=== PATIENT | male | born 1950 | race Caucasian/White ===

== ENCOUNTER 2017-02-16 09:48 | Day surgery (SDC) | payer OTHER ==
--- NOTE | 2017-02-16 10:03 | EDPHY ---
H & P Time Seen by Provider: 02/16/17 10:00 HPI/ROS: CHIEF COMPLAINT: Left wrist pain after falling off ladder HISTORY OF PRESENT ILLNESS: 66-year-old male year old arrives via private vehicle complaining left wrist pain and right pretibial abrasion after he was standing on a ladder height of approximately 5 feet, ladder slipped and he fell onto his outstretched left hand and also sustained abrasion to his right pretibial region. No head injury. He is able to bear weight. No neck pain or injury. No alcohol or drug use. No peripheral paresthesia, weakness, numbness. No syncope. Purely mechanical. PCP: [employer] REVIEW OF SYSTEMS: A ten point review of systems was performed and is negative with the exception of the items mentioned in the HPI PAST MEDICAL/SURGICAL HISTORY: Tetanus up-to-date no anticoagulant use, no relevant medical/surgical history SOCIAL HISTORY: denies alcohol use at time of incident PHYSICAL EXAM 1) GENERAL: Well-developed, well-nourished, alert and oriented. Appears to be in no acute distress. Answering questions appropriately. 2) HEAD: Normocephalic, atraumatic 3) HEENT: Pupils equal, round, reactive to light bilaterally. Negative Horners. Nasopharynx, oropharynx, clear. No deformity or angulation of nose. No septal hematoma. No rhinorrhea. No oral trauma. Ears bilaterally with normal tympanic membranes. No hemotympanum. No fluid or blood in the external auditory canal. No raccoon eyes. No Drake sign. . 4) NECK: No cervical collar is on. Posterior cervical spine is nontender, no stepoff, no effusion. Full range of motion which does not elicit any midline cervical spine pain, no posterior midline tenderness, no step-off. 5) LUNGS: Clear to auscultation bilaterally, no wheezes, no rhonchi, no retractions. No obvious signs of trauma. No chest wall pain. No flaring, no grunting. Moving symmetrically. No crepitus. 6) HEART: Regular rate and rhythm, 7) ABDOMEN: No guarding, no rebound, no focal tenderness, no peritoneal signs, no signs of trauma, no ecchymosis 8) MUSCULOSKELETAL: Left upper extremity: Tender to palpation wrist with noted dorsal deformity with intact skin, no puncture wound or laceration. Soft compartments of the upper extremity Proximally distally including forearm, elbow shoulder nontender. Radial ulnar median nerve function intact distally. Right lower extremity: Right pretibial abrasion with no underlying osseous discomfort, full weight-bearing. Soft compartments. Distal DP PT pulses present and brisk 9) BACK: No midline vertebral tenderness, no fluctuance, no step-off, no obvious trauma, no visual or palpable abnormality. 10) SKIN: abrasion to right pretibial region with no underlying osseous discomfort, soft compartments DIFFERENTIAL DIAGNOSIS:in no particular order including but not limited to fracture, sprain, strain, compartment syndrome. Smoking Status: Former smoker Constitutional: Initial Vital Signs Temperature (C) 36.9 C 02/16/17 09:52 Heart Rate 82 02/16/17 09:52 Respiratory Rate 18 02/16/17 09:52 Blood Pressure 133/89 H 02/16/17 09:52 O2 Sat (%) 96 02/16/17 09:52 O2 Delivery Mode Room Air Allergies/Adverse Reactions: No Known Allergies Allergy (Unverified 02/16/17 09:50) Home Medications: Medication Instructions Recorded Allopurinol [Allopurinol 100 MG 100 mg PO DAILY 02/16/17 (*)] Lisinopril [Zestril 20 mg (*)] 20 mg PO 02/16/17 metFORMIN HCL [Glucophage 500 mg 500 mg PO 02/16/17 (*)] oxyCODONE HCL/ACETAMINOPHEN 1 each PO Q4-6PRN PRN #20 tablet 02/16/17 [Percocet 5-325 mg Tablet] MDM/Departure - MDM Imaging Results: Imaging Impressions Wrist X-Ray 02/16/17 09:55 Impression: 1. Displaced and dorsally angulated Colles' fracture. 2. After reduction consider obtaining dedicated navicular views. Wrist X-Ray 02/16/17 10:07 Impression: Non reduced Colles' fracture. Images reviewed by myself Procedures: Procedure: Fracture reduction Indication: Fracture of the distal radius Indications, risks and benefits discussed with patient and consent obtained. A hematoma block of 0.5% bupivicaine placed by myself. Traction and countertraction applied achieving a visible and palpable reduction. The area was splinted with splint. After application of the splint I returned and re- examined the patient. The splint was adequately immobilizing the joint and distal to the splint the patient's circulation and sensation were intact. Patient shows no signs of compartment syndrome. During the course of reduction after manual traction was removed the patient's fracture would return to baseline. Medications Given: Discontinued Medications Bupivacaine HCl (Sensorcaine 0.5% Vial) Confirm Administered Dose 30 ml .ROUTE .STK-MED ONE Stop: 02/16/17 12:47 Last Admin: 02/16/17 15:20 Dose: Not Given Cefazolin Sodium (Cefazolin Syringe) 2 gm IVP ONCALL ONE Stop: 02/16/17 14:16 Last Admin: 02/16/17 14:06 Dose: 2 gm Fentanyl (Sublimaze) 75 mcg IVP EDNOW ONE Stop: 02/16/17 10:07 Last Admin: 02/16/17 10:28 Dose: 75 mcg Hydromorphone HCl (Dilaudid) 1 mg IVP EDNOW ONE Stop: 02/16/17 10:39 Last Admin: 02/16/17 10:42 Dose: 1 mg Midazolam HCl (Versed) 2 mg IVP ONCE ONE Stop: 02/16/17 13:21 Last Admin: 02/16/17 14:03 Dose: 2 mg Ondansetron HCl (Zofran) 4 mg IVP EDNOW ONE Stop: 02/16/17 10:40 Last Admin: 02/16/17 10:42 Dose: 4 mg ED Course/Re-evaluation: 11:47 a.m.: Phone consultation with Dr. Andrew Rodriges orthopedics who will come to the ER to evaluate patient as the patient is fracture repeatedly displaces when manual traction is removed. The case was discussed with secondary supervising physician Dr. Rea Wilcox in the emergency department. 12:30 p.m.: Informed by Dr. Andrew Rodriges that he will take the patient to the operating room this afternoon - Depart Disposition: To OP Cath/Surgery Clinical Impression: Right pretibial abrasion Left wrist fracture Qualifiers: Encounter type: initial encounter Fracture type: closed Qualified Code(s): S62.102A - Fracture of unspecified carpal bone, left wrist, initial encounter for closed fracture Condition: Good
[2017-02-16] MEDS ORDERED: fentaNYL 100 MCG/2 ML INJ IVP ONE (10:06)
[2017-02-16] MEDS ORDERED: fentaNYL 100 MCG/2 ML INJ ONE ×3 (10:22→16:06)
[2017-02-16] MEDS ORDERED: HYDROmorphONE/DILAUDID 1 MG/ML INJ IVP ONE (10:38)
[2017-02-16] MEDS ORDERED: ONDANSETRON 4 MG/2 ML VIAL IVP ONE (10:39)
[2017-02-16] MEDS ORDERED: HYDROGEN PEROXIDE 236 ML BOTTLE TP ONE (10:43)
[2017-02-16 12:00] LABS: PLATELET COUNT 213 10^3/uL (150-400)
[2017-02-16 12:09] LABS: INR 1.03 (0.83-1.16); PROTIME(PATIENT) 13.4 SEC (12.0-15.0)
[2017-02-16] MEDS ORDERED: BUPIVACAINE 0.5% 30 ML SDV ONE (12:46)
--- NOTE | 2017-02-16 13:19 | PDANEPAE ---
ANE History of Present Illness left radius frx ANE Past Medical History - Cardiovascular History Hx Hypertension: Yes Hx Arrhythmias: No Hx Chest Pain: No Hx Coronary Artery / Peripheral Vascular Disease: No Hx CHF / Valvular Disease: No Hx Palpitations: No - Pulmonary History Hx COPD: No Hx Asthma/Reactive Airway Disease: No Hx Recent Upper Respiratory Infection: No Hx Oxygen in Use at Home: No Hx Sleep Apnea: No - Neurologic History Hx Cerebrovascular Accident: No Hx Seizures: No Hx Dementia: No - Endocrine History Hx Diabetes: Yes Hypothyroid: No Hyperthyroid: No Obesity: yes - Renal History Hx Renal Disorders: Yes - Liver History Hx Hepatic Disorders: Yes - Neurological & Psychiatric Hx Hx Neurological and Psychiatric Disorders: No - Cancer History Hx Cancer: No ANE Review of Systems Review of systems is: negative Review of Systems: - Exercise capacity Exercise capacity: >=4 METS ANE Patient History - Allergies Allergies/Adverse Reactions: No Known Allergies Allergy (Unverified 02/16/17 09:50) - Home Medications Home Medications: Allopurinol [Allopurinol 100 MG (*)] 100 mg PO DAILY 02/16/17 [Last Taken Unknown] Lisinopril [Zestril 20 mg (*)] 20 mg PO 02/16/17 [Last Taken Unknown] metFORMIN HCL [Glucophage 500 mg (*)] 500 mg PO 02/16/17 [Last Taken Unknown] - NPO status NPO Status: no food or drink >8 hours NPO Since - Liquids (Date): 02/16/17 NPO Since - Liquids (Time): 05:30 NPO Since - Solids (Date): 02/16/17 NPO Since - Solids (Time): 05:30 - Anes Hx Anes Hx: no prior problems - Smoking Hx Smoking Status: Former smoker - Alcohol Use Alcohol Use: Rarely - Family Anes Hx Family Anes Hx: none ANE Labs/Vital Signs - Labs Result Diagrams: 02/16/17 10:12 02/16/17 10:12 - Vital Signs Vital Signs: reviewed preoperatively; see RN documention for details Blood Pressure: 141/74 Heart Rate: 76 Respiratory Rate: 18 O2 Sat (%): 95 Height: 177.8 cm Weight: 117.934 kg ANE Physical Exam - Airway Neck exam: FROM Mallampati Score: Class 1 - Pulmonary Pulmonary: no respiratory distress - Cardiovascular Cardiovascular: regular rate and rhythym - ASA Status ASA Status: II ANE Anesthesia Plan Anesthesia Plan: GA w LMA
[2017-02-16] MEDS ORDERED: MIDAZOLAM 2 MG/2 ML VIAL IVP ONE (13:20)
[2017-02-16] MEDS ORDERED: LIDOCAINE 2% 5 ML SDV ONE (13:49)
[2017-02-16] MEDS ORDERED: PROPOFOL 200 MG/20 ML VIAL ONE (13:50)
[2017-02-16] MEDS ORDERED: ceFAZolin 2 GM/SWFI 20 ML SYR IVP ONE ×2 (14:00→14:15)
--- NOTE | 2017-02-16 14:35 | GHP ---
[f rep st] PREOP HISTORY AND PHYSICAL DATE OF ADMISSION: 02/16/2017 REASON FOR ADMISSION: Left distal radius fracture. 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 He was on a ladder this morning when the ladder slipped on some track decking. He fell and may have caught his l eft upper extremity underneath the ladder. He had a lot of swelling and pain, [facility] revealed an unstable fracture of the distal radius. Attempts at manipulatin g were unsuccessful. ALLERGIES: None. MEDICATIONS: Metformin, allopurinol and lisinopril. MEDICAL PROBLEMS: Include diabetes, gout, hypertension. REVIEW OF SYSTEMS: Negative with the exception of the HPI. PREVIOUS SURGERY: Appendectomy in 1971. Renal stones 4 years ago. EXAM: GENERAL: The patient alert and oriented, cooperative with exam. CHEST: Clear to auscultatio n. CARDIAC: Regular rate and rhythm. ABDOMEN: Nontender. Bowel sounds positive. EXTREMITIES: E xamination of left upper extremity reveals normal sensation in the fingers. He is able to flex, exte nd, abduct and adduct the fingers. Pulses 1+ radial and ulnar. Moderate swelling. ASSESSMENT: Fracture, left distal radius. PLAN: Patient will undergo open reduction, internal fixation, left distal radius fracture. /[id number]/MODL
--- NOTE | 2017-02-16 14:35 | GHP ---
[f rep st] PREOP HISTORY AND PHYSICAL DATE OF ADMISSION: 02/16/2017 REASON FOR ADMISSION: Left distal radius fracture. 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 He was on a ladder this morning when the ladder slipped on some track decking. He fell and may have caught his l eft upper extremity underneath the ladder. He had a lot of swelling and pain, [facility] revealed an unstable fracture of the distal radius. Attempts at manipulatin g were unsuccessful. ALLERGIES: None. MEDICATIONS: Metformin, allopurinol and lisinopril. MEDICAL PROBLEMS: Include diabetes, gout, hypertension. REVIEW OF SYSTEMS: Negative with the exception of the HPI. PREVIOUS SURGERY: Appendectomy in 1971. Renal stones 4 years ago. EXAM: GENERAL: The patient alert and oriented, cooperative with exam. CHEST: Clear to auscultatio n. CARDIAC: Regular rate and rhythm. ABDOMEN: Nontender. Bowel sounds positive. EXTREMITIES: E xamination of left upper extremity reveals normal sensation in the fingers. He is able to flex, exte nd, abduct and adduct the fingers. Pulses 1+ radial and ulnar. Moderate swelling. ASSESSMENT: Fracture, left distal radius. PLAN: Patient will undergo open reduction, internal fixation, left distal radius fracture. /[id number]/MODL
--- NOTE | 2017-02-16 14:35 | GHP ---
[f rep st] PREOP HISTORY AND PHYSICAL DATE OF ADMISSION: 02/16/2017 REASON FOR ADMISSION: Left distal radius fracture. 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 He was on a ladder this morning when the ladder slipped on some track decking. He fell and may have caught his l eft upper extremity underneath the ladder. He had a lot of swelling and pain, [facility] revealed an unstable fracture of the distal radius. Attempts at manipulatin g were unsuccessful. ALLERGIES: None. MEDICATIONS: Metformin, allopurinol and lisinopril. MEDICAL PROBLEMS: Include diabetes, gout, hypertension. REVIEW OF SYSTEMS: Negative with the exception of the HPI. PREVIOUS SURGERY: Appendectomy in 1971. Renal stones 4 years ago. EXAM: GENERAL: The patient alert and oriented, cooperative with exam. CHEST: Clear to auscultatio n. CARDIAC: Regular rate and rhythm. ABDOMEN: Nontender. Bowel sounds positive. EXTREMITIES: E xamination of left upper extremity reveals normal sensation in the fingers. He is able to flex, exte nd, abduct and adduct the fingers. Pulses 1+ radial and ulnar. Moderate swelling. ASSESSMENT: Fracture, left distal radius. PLAN: Patient will undergo open reduction, internal fixation, left distal radius fracture. /[id number]/MODL
[2017-02-16] MEDS ORDERED: OXYCODONE/APAP 5/325 TAB PO PRN (15:07)
[2017-02-16] MEDS ORDERED: HYDROCODONE/APAP 5/325 TAB PO PRN (15:07)
[2017-02-16] MEDS ORDERED: ALBUTEROL 3 ML DEYVIAL IH PRN (15:07)
[2017-02-16] MEDS ORDERED: HYDROmorphONE/DILAUDID 1 MG/ML INJ IVP PRN (15:07)
[2017-02-16] MEDS ORDERED: ONDANSETRON 4 MG/2 ML VIAL IVP PRN (15:07)
[2017-02-16] MEDS ORDERED: NALOXONE HCL 0.4 MG/ML INJ IVP PRN (15:07)
[2017-02-16] MEDS ORDERED: PROMETHAZINE HCL 25 MG/ML INJ IVP PRN (15:07)
[2017-02-16] MEDS ORDERED: fentaNYL 100 MCG/2 ML INJ IVP PRN (15:07)
--- NOTE | 2017-02-16 15:34 | POSTANESTH ---
Post Anesthetic Evaluation Cardiovascular Status: Normal, Stable Respiratory Status: Normal, Stable Level of Consciousness/Mental Status: Can Participate in Eval Pain Control: Adequate, Prn Tx Ordered Nausea/Vomiting Control: Adequate, Prn Tx Ordered Complications Possibly Related to Anesthesia: None Noted
[2017-02-16] MEDS ORDERED: PROMETHAZINE HCL 25 MG/ML INJ ONE (16:06)
--- NOTE | 2017-02-16 17:10 | GOP ---
[f rep st] OPERATIVE REPORT DATE OF OPERATION: 02/16/2017 SURGEON: Andrew Rodriges MD HUMAN [employer]OURCES TALENT MANAGER: Mohini Fu PA-C ANESTHESIA: General. PREOPERATIVE DIAGNOSIS: Left distal radius and ulnar styloid fracture. POSTOPERATIVE DIAGNOSIS: Left distal radius and ulnar styloid fracture. PROCEDURE PERFORMED: Open reduction/internal fixation of left distal radius fracture. FINDINGS: DESCRIPTION OF PROCEDURE: Patient was taken to the operating room, administered general anesthesia, and placed in supine position. The left upper extremity is prepped and draped in normal sterile fash ion. A volar incision was made through dermal and subcutaneous tissues. Incision was carried throug h the tendon sheath of the flexor carpi radialis. The pronator quadratus was then reflected. The fr acture was found to have abundant soft tissue interposed within it. This was brought out. The fract ure bone ends were cleaned up. The fracture was then reduced and secured with a K-wire. The plate w as then selected. We elected to use a 3-hole proximal plate. The plate was secured in the sliding h ole with a 16 mm 2.8 screw. The plate was then secured distally with 3 locking 2.4 mm screws. The f racture was visualized under fluoroscopy and felt to be appropriately positioned. Thorough lavage pe rformed with normal saline. Closure was performed of the pronator quadratus with a 3-0 Vicryl suture followed by closure of the subcutaneous tissues with 3-0 Vicryl suture, followed by closure of the d ermis with 4-0 Ethilon. A sterile compression dressing was applied. The patient was placed in a coa ptation splint. He tolerated procedure well and was transported back to Recovery in stable condition . No operative complications. COMPLICATIONS: None. /[id number]/MODL
[2017-02-16 17:11] VITALS: BP 111/65
[2017-02-16 17:13] VITALS: TEMP 97.5
[2017-02-16 17:19] VITALS: PULSE 56; RESP 14; O2SAT 95
[2017-02-16] MEDS ORDERED: CEPHALEXIN 500 MG CAP PO SCH (18:00)
== END 2017-02-16 17:49 | disposition home or self-care (01) ==
LOC: FSGY 12:23 → UNDOADMOB 12:32 → FSGY 17:49 → UNDODISOB 17:49
PROVIDERS: ATTEND Orthopaedic Surgery Sports Medicine
PROC: 0PSJXZZ Reposition Left Radius, External Approach (ICD-10-PCS; principal; 2017-02-16 13:30)
PROC: 0PSJ04Z Reposition Left Radius with Internal Fixation Device, Open Approach (ICD-10-PCS; principal; 2017-02-16 13:30)
DX: S52.502A Unspecified fracture of the lower end of left radius, initial encounter for closed fracture (principal); W11.XXXA Fall on and from ladder, initial encounter; Y92.9 Unspecified place or not applicable; Y99.0 Civilian activity done for income or pay; I10 Essential (primary) hypertension; E11.9 Type 2 diabetes mellitus without complications; E66.9 Obesity, unspecified
CPT/HCPCS: 96374; C1713; J0690; J1170; J2250; J2405; J2550; J2704; J3010